=== PATIENT | female | born 1980 | race African-American/Black ===

== ENCOUNTER 2024-08-05 14:53 | Emergency (ER) | payer OTHER ==
[~2024-08-05] VITALS: Ht 162.6 cm; Wt 89.8 kg
[2024-08-05 15:39] LABS: BASOPHILS # (AUTO) 0.1 K/UL (0.0-0.2); BASOPHILS % (AUTO) 0.9 % (0.0-2.0); EOSINOPHILS # (AUTO) 0.1 K/uL (0.0-0.7); EOSINOPHILS % (AUTO) 1.9 % (0.0-7.0); HEMATOCRIT 35.6 % (31.2-41.9); HEMOGLOBIN 11.3 g/dL (10.9-14.3); LYMPHOCYTES # (AUTO) 1.6 K/uL (0.8-4.8); LYMPHOCYTES % (AUTO) 24.9 % (20.5-51.5); MEAN CORPUSCULAR HEMOGLOBIN 23.5 uug (24.7-32.8); MEAN CORPUSCULAR HGB CONC 32 g/dL (32.3-35.6); MEAN CORPUSCULAR VOLUME 74.1 fL (75.5-95.3); MONOCYTES # (AUTO) 0.4 K/uL (0.1-1.30); NEUTROPHILS # (AUTO) 4.2 K/uL (1.8-8.9); NEUTROPHILS % (AUTO) 66.3 % (38.5-71.5); PLATELET COUNT (AUTO) 340 K/uL (179-408); RED CELL DISTRIBUTION WIDTH 14.5 % (12.3-17.7); WHITE BLOOD COUNT (AUTO) 6.4 K/uL (3.8-11.8)
[2024-08-05 15:45] LABS: CALCIUM 8.8 mg/dL (8.5-10.1); POTASSIUM 3.6 mmol/L (3.5-5.1)
[2024-08-05 15:51] LABS: BILIRUBIN,DIRECT 0.1 mg/dL (0.0-0.2); BILIRUBIN,TOTAL 0.3 mg/dL (0.2-1.0); TOTAL PROTEIN, SERUM 7.8 g/dL (6.4-8.2)
[2024-08-05 16:31] LABS: IRON, SERUM 52 ug/dL (50-175)
[2024-08-05] MEDS ORDERED: CYANOCOBALAMIN 1000 MCG/ML VIAL ONE (16:44)
[2024-08-05] MEDS: CYANOCOBALAMIN 1000 MCG/ML VIAL IM ONE (16:53)
[2024-08-05] MEDS ORDERED: CLON0.1T PO (17:02)
[2024-08-05] MEDS ORDERED: SYRI-29 MC (17:02)
[2024-08-05] MEDS ORDERED: FERR1TAB90 PO (17:02)
[2024-08-05] MEDS ORDERED: CYAN-10 IM (17:02)
[2024-08-05] MEDS ORDERED: LISI20TA30 PO (17:02)
[2024-08-05] MEDS ORDERED: CLONIDINE HCL 0.1 MG TABLET ONE (17:18)
[2024-08-05] MEDS: CLONIDINE HCL 0.1 MG TABLET PO ONE (17:21)
[2024-08-05 17:27] VITALS: BP 170/90; O2SAT 98
== END 2024-08-05 17:29 | disposition home or self-care (01) ==
LOC: ER 14:53
DX: E11.42 Type 2 diabetes mellitus with diabetic polyneuropathy (principal); M25.532 Pain in left wrist; M79.622 Pain in left upper arm; M79.641 Pain in right hand; R53.1 Weakness; E03.9 Hypothyroidism, unspecified; E53.8 Deficiency of other specified B group vitamins; I10 Essential (primary) hypertension; Z88.8 Allergy status to other drugs, medicaments and biological substances; Z90.89 Acquired absence of other organs; Z87.39 Personal history of other diseases of the musculoskeletal system and connective tissue
CPT/HCPCS: 99283; 80076; 80048; 82607; 83550; 83735; 85025; 85044; 36415; 96372; J3420; 70030-TC; A4606; A4663